=== PATIENT | male | born 1945 | race Two or more races ===

== ENCOUNTER → 2017-02-17 | Outpatient (CLI) | payer OTHER ==
[~2017-02-17] VITALS: Ht 177.8 cm; Wt 106.0 kg
[~2017-02-17] MED LIST: AMLODIPINE BESYL5 MG PO; FENOFIBRATE160 M1 PO; FIBER THERAPY0.52 GM PO; METOPROLOL SUC100 MG PO; MULTIVITAMIN1 EAC2 PO; VALSARTAN-HCTZ1 EAC3 PO; VITAMIN D2000 UNI1 PO; ZYRTEC10 M2 PO
[2017-02-17 08:55] LABS: EOSINOPHIL (%) 2.8 % (0-5); EOSINOPHIL COUNT 0.1 K/uL (0-0.3); HEMATOCRIT 48.3 % (38.0-50.0); IMMATURE GRANULOCYTE (%) 0.6 % (0.0-0.7); INSTRUMENT ABS NEUTROPHIL CT 1.5 K/uL; MCH 27.7 PG (29.0-34.0); MCHC 32.9 G/DL (30.0-36.0); MCV 84.1 FL (86-99); MEAN PLAT.VOLUME 11.2 uM^3 (9.0-12.4); MONOCYTE COUNT 0.6 K/uL (0-0.8); NEUTROPHIL (%) 45.7 % (45-76); NEUTROPHIL COUNT 1.5 K/uL (1.8-6.4); PLATELET COUNT 130 K/uL (156-360); RBC DIS.WIDTH-CV 15.7 % (11.8-14.6); RBC DIS.WIDTH-SD 47.6 % (39-53); RED BLOOD COUNT 5.74 M/uL (4.00-5.50); WHITE BLOOD COUNT 3.2 K/uL (4.1-10.2)
[2017-02-17 09:10] LABS: INTER. NORMALIZED RATIO 1.1; PROTHROMBIN TIME 12.4 SEC (10.2-12.9)
[2017-02-17 09:13] LABS: PTT 30.1 SEC (25-37)
[2017-02-20 12:49] LABS: NUMBER OF MARKERS 22; SPECIMEN VIABILITY 98
== END | disposition home or self-care (01) ==
LOC: OPR 08:01 → EDSTATUS 09:00
PROVIDERS: Internal Medicine Hematology & Oncology
PROC: 07DS3ZX Extraction of Vertebral Bone Marrow, Percutaneous Approach, Diagnostic (ICD-10-PCS; principal; 2017-02-17)
DX: D64.9 Anemia, unspecified (principal); D69.6 Thrombocytopenia, unspecified; D72.819 Decreased white blood cell count, unspecified; Z88.8 Allergy status to other drugs, medicaments and biological substances; R74.0 Nonspecific elevation of levels of transaminase and lactic acid dehydrogenase [LDH]; N40.0 Benign prostatic hyperplasia without lower urinary tract symptoms; E78.5 Hyperlipidemia, unspecified; E87.0 Hyperosmolality and hypernatremia; E66.9 Obesity, unspecified; Z68.34 Body mass index [BMI] 34.0-34.9, adult
CPT/HCPCS: 77012; 85025; 85610; 85730; 88271 90; 88275 90; J3010